=== PATIENT | female | born 1970 | race Caucasian/White ===

== ENCOUNTER 2020-09-08 20:17 | Emergency (ER) | payer OTHER, BC ==
[~2020-09-08] VITALS: Ht 167.6 cm; Wt 76.4 kg
[2020-09-08] MEDS ORDERED: HYDR-4571 (20:37)
[2020-09-08] MEDS ORDERED: ROPI1TAB3 (20:37)
[2020-09-08] MEDS ORDERED: MECL-86 (20:37)
[2020-09-08] MEDS ORDERED: LEVO50TA5 (20:37)
[2020-09-08] MEDS ORDERED: GABA800T4 (20:37)
[2020-09-08] MEDS ORDERED: METF500T13 (20:37)
[2020-09-08] MEDS ORDERED: HYDR-643 (20:37)
[2020-09-08] MEDS ORDERED: AMLO1TAB24 (20:38)
[2020-09-08] MEDS ORDERED: LISI40TA4 (20:38)
[2020-09-08] MEDS ORDERED: methocarbamoL 750 MG TAB PO ONE (20:45)
[2020-09-08] MEDS ORDERED: IBUPROFEN 600MG TAB PO ONE (20:45)
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
[2020-09-08] MEDS ORDERED: IBUP-1022 PO (21:50)
[2020-09-08] MEDS ORDERED: METH-1164 PO (21:50)
[2020-09-08 22:30] VITALS: BP 143/63
== END 2020-09-08 22:40 | disposition home or self-care (01) ==
LOC: M ED 20:17
DX: S46.012A Strain of muscle(s) and tendon(s) of the rotator cuff of left shoulder, initial encounter (principal); V40.5XXA Car driver injured in collision with pedestrian or animal in traffic accident, initial encounter; Y92.9 Unspecified place or not applicable; Y93.9 Activity, unspecified; Y99.9 Unspecified external cause status; E11.9 Type 2 diabetes mellitus without complications; I10 Essential (primary) hypertension; E03.9 Hypothyroidism, unspecified; F41.9 Anxiety disorder, unspecified; Z79.84 Long term (current) use of oral hypoglycemic drugs; Z79.899 Other long term (current) drug therapy; Z91.030 Bee allergy status